=== PATIENT | male | born 1975 | race Two or more races ===

== ENCOUNTER 2018-06-11 13:10 | Emergency (ER) | payer OTHER, BC ==
[2018-06-11] MEDS ORDERED: NORMAL SALINE 1000 ML 1,000 ML IV ONE (13:25)
--- NOTE | 2018-06-11 13:27 | ER Document Report ---
ED Medical Screen (RME) - General Chief Complaint: Allergic Reaction Stated Complaint: POSSIBLE ALLERGIC REACTION Time Seen by Provider: 06/11/18 13:18 TRAVEL OUTSIDE OF THE [place] IN LAST 30 DAYS: No - HPI Patient complains to provider of: allergic reaction Onset: Just prior to arrival Notes: 06/11/18 13:26 Patient is a 42-year-old male who was sent to the emergency department from urgent care for acute allergic reaction, patient works in [employer] and is unsure what he may have come in contact with that may have created the reaction, he reports facial swelling, throat tightness, difficulty breathing and difficulty swallowing with the sensation that his throat was closing, patient took 50 mg of Benadryl prior to going to urgent care, in route EMS administered an additional 50 mg of IV Benadryl with 125 of Solu-Medrol and 0.5 of epinephrine, patient reports some improvement of symptoms Patient slightly tachycardic, likely because he received subcu epinephrine prior to arrival, we will place him on a monitor in a room and provide IV fluids at this time and continue to monitor for improvement of symptoms and vital signs RAPID MEDICAL EVALUATION DISCLOSURE I have seen this patient as part of a Rapid Medical Evaluation and, if applicable, placed any initially appropriate orders. The patient will be seen and fully evaluated, including a full history and physical exam, by a provider (in Main ED or Fast Track) when a room becomes available. - Related Data Allergies/Adverse Reactions: No Known Allergies Allergy (Verified 06/11/18 13:12) Physical Exam - Vital signs Vitals: Temp Pulse Resp BP Pulse Ox 98.4 F 101 H 18 134/83 H 95 06/11/18 13:12 06/11/18 13:12 06/11/18 13:12 06/11/18 13:12 06/11/18 13:12 Course - Vital Signs Vital signs: Temp Pulse Resp BP Pulse Ox 98.4 F 101 H 18 134/83 H 95 06/11/18 13:12 06/11/18 13:12 06/11/18 13:12 06/11/18 13:12 06/11/18 13:12
--- NOTE | 2018-06-11 15:06 | ER Document Report ---
ED General - General Chief Complaint: Allergic Reaction Stated Complaint: POSSIBLE ALLERGIC REACTION Time Seen by Provider: 06/11/18 13:18 Mode of Arrival: Medic Notes: 42-year-old's male sent to the emergency department from urgent care for an acute allergic reaction. Patient works in [employer] and is unsure what he was exposed to. He states that around 11 he began having facial swelling, throat tightness, difficulty breathing and feeling like his throat was closing. Patient took 50 mg of Benadryl prior to going to urgent care. Around noon he went to urgent care. EMS was contacted and administered an additional 50 mg of IV Benadryl, 125 mg Solu-Medrol, and 0.5 mg of epinephrine. Patient was transferred to the emergency department. TRAVEL OUTSIDE OF THE [place] IN LAST 30 DAYS: No - HPI Onset: This morning Onset/Duration: Sudden Quality of pain: No pain Severity: None Associated symptoms: None Exacerbated by: Denies Relieved by: Denies Similar symptoms previously: No Recently seen / treated by doctor: No - Related Data Allergies/Adverse Reactions: No Known Allergies Allergy (Verified 06/11/18 13:28) Past Medical History - General Information source: Patient - Social History Smoking Status: Current Every Day Smoker Frequency of alcohol use: Heavy Drug Abuse: None Family History: Reviewed & Not Pertinent Patient has suicidal ideation: No Patient has homicidal ideation: No Renal/ Medical History: Denies: Hx Peritoneal Dialysis Review of Systems - Review of Systems Constitutional: No symptoms reported EENT: Throat swelling Cardiovascular: No symptoms reported Respiratory: No symptoms reported Gastrointestinal: No symptoms reported Genitourinary: No symptoms reported Musculoskeletal: No symptoms reported Skin: No symptoms reported Hematologic/Lymphatic: No symptoms reported Neurological/Psychological: No symptoms reported -: Yes All other systems reviewed and negative Physical Exam - Vital signs Vitals: Temp Pulse Resp BP Pulse Ox 98.4 F 101 H 18 134/83 H 95 06/11/18 13:12 06/11/18 13:12 06/11/18 13:12 06/11/18 13:12 06/11/18 13:12 - Notes Notes: PHYSICAL EXAMINATION: GENERAL: Well-appearing, well-nourished and in no acute distress. HEAD: Atraumatic, normocephalic. EYES: Pupils equal round and reactive to light, extraocular movements intact, sclera anicteric, conjunctiva are normal. ENT: Nares patent, oropharynx clear without exudates. Moist mucous membranes. NECK: Normal range of motion, supple without lymphadenopathy LUNGS: Breath sounds clear to auscultation bilaterally and equal. No wheezes rales or rhonchi. HEART: Regular rate and rhythm without murmurs ABDOMEN: Soft, nontender, nondistended abdomen. No guarding, no rebound. No masses appreciated. Musculoskeletal: Normal range of motion, no pitting or edema. No cyanosis. NEUROLOGICAL: Cranial nerves grossly intact. Normal speech, normal gait. Normal sensory, motor exams PSYCH: Normal mood, normal affect. SKIN: Warm, Dry, normal turgor, no rashes or lesions noted. Course - Re-evaluation Re-evalutation: 06/11/18 16:42 Patient monitored in the emergency department. Patient states that his symptoms have completely resolved. Patient feels comfortable with discharge home. I will give the patient an EpiPen prescription. I instructed the patient to follow-up with his primary care physician this week, to use the medication as directed, and to return for worsening symptoms. Patient is agreeable to plan of care. - Vital Signs Vital signs: Temp Pulse Resp BP Pulse Ox 98.4 F 101 H 21 H 130/78 H 94 06/11/18 13:12 06/11/18 13:12 06/11/18 16:01 06/11/18 16:01 06/11/18 16:01 Discharge - Discharge Clinical Impression: Allergic reaction Qualifiers: Encounter type: initial encounter Qualified Code(s): T78.40XA - Allergy, uns pecified, initial encounter Condition: Good Disposition: HOME, SELF-CARE Instructions: Acute Allergic Reaction ([facility]), Epinephrine Prescriptions: Epinephrine 0.3 mg IJ ONCE PRN 1 Days #1 auto.injct PRN Reason: See Label Comments Referrals: LORELEI LUGO MD [ACTIVE STAFF] - Follow up as needed
[2018-06-11 17:30] VITALS: BP 129/83
== END 2018-06-11 17:29 | disposition home or self-care (01) ==
LOC: ER 13:10
DX: T78.40XA Allergy, unspecified, initial encounter (principal); R22.0 Localized swelling, mass and lump, head; R06.02 Shortness of breath; Z79.899 Other long term (current) drug therapy; F17.200 Nicotine dependence, unspecified, uncomplicated
CPT/HCPCS: 99283; 96360; J7030